=== PATIENT | female | born 1945 | race Caucasian/White ===

== ENCOUNTER 2020-12-01 16:51 | Inpatient (IN) | payer OTHER, MEDICAID ==
[~2020-12-01] VITALS: Ht 170.2 cm; Wt 71.9 kg
[~2020-12-01 16:51] MED LIST: COUMADIN 4 MG TA4 M1; LISINOPRIL-HCT1 EAC2; MIRALAX255 GM
[2020-12-01 16:55] VITALS: BP 183/82
[2020-12-01 17:11] LABS: HEMATOCRIT 35.5 % (37.0-47.0); HEMOGLOBIN 11.6 gm/dL (12.0-15.0); MCH 28.4 pg (26.0-34.0); MCHC 32.6 g/dL (28.0-37.0); MCV 87.3 fL (80.0-100.0); MPV 6.7 fl. (7.2-11.1); RBC 4.07 mil/uL (4.20-5.00); RDW-CV 13.7 % (10.5-14.5); WBC 13.2 thou/uL (4.0-11.0)
[2020-12-01 17:21] LABS: CALCIUM 8.4 mg/dL (8.5-10.1); CREATININE 0.7 mg/dL (0.6-1.3); POTASSIUM 3.5 mmol/L (3.5-5.1)
[2020-12-01 17:25] LABS: APTT 30.2 Seconds (25.0-31.3); PROTIME 10.5 Seconds (9.20-11.50)
[2020-12-01 17:26] LABS: TOTAL BILIRUBIN 0.3 mg/dL (<0.1-1.0); TOTAL PROTEIN 6.6 g/dL (6.4-8.2)
[2020-12-01] MEDS ORDERED: CARVEDILOL12.5 MG PO (17:41)
[2020-12-01] MEDS ORDERED: COZAAR 25 MG TA25 M1 PO (17:41)
[2020-12-01] MEDS ORDERED: CYCLOPENTOLA1 %/2 M1 OPHTHALMIC (17:42)
[2020-12-01] MEDS ORDERED: VIMPAT100 MG PO (17:42)
[2020-12-01] MEDS ORDERED: LIDODERM1 EACH TOP (17:42)
[2020-12-01] MEDS ORDERED: TYLENOL ARTHRI650 MG PO (17:43)
--- NOTE | 2020-12-01 17:47 | NUR ---
UNABLE TO PERFORM SWALLOW STUDY UNABLE TO FOLLOW COMMAND
[2020-12-01 17:49] LABS: URINE BILIRUBIN NEGATIVE (Negative); URINE BLOOD TRACE (Negative); URINE CLARITY CLEAR; URINE COLOR YELLOW; URINE GLUCOSE-RANDOM NEGATIVE (Negative); URINE KETONES TRACE (Negative); URINE LEUKOCYTES NEGATIVE (Negative); URINE NITRITE NEGATIVE (Negative); URINE PROTEIN TRACE (Negative); URINE SPECIFIC GRAVITY 1.025 (1.005-1.030); URINE UROBILINOGEN 0.2 E.U./dl (0.2-1.0)
[2020-12-01 18:58] LABS: URINE POTASSIUM-RANDOM 48.5 mmol/L
[2020-12-01 20:32] VITALS: BP 141/70
--- NOTE | 2020-12-01 21:00 | NUR ---
RECEIVED REPORT FROM ER, PT TO ROOM PER CART. PT ABLE TO ASSIST WITH TRANSFER FROM CART TO BED. LT HIP BRACE NOTED. PT ALERT AND ORIENTED X4, PLEASANT AND COOPERATIVE. ON RA, NO SOA NOTED. WALDEN PATENT. TEJ KNEES WITH SCABBED OVER ABRASIONS. TEJ BUTTOCKS WITH OPEN AREAS. TELEMETRY APPLIED SHOWING SR. SEE ADMISSION ASSESSMENT AND HX. WILL CONT TO MONITOR AND ASSIST NEEDED.
[2020-12-01 22:51] VITALS: BP 149/71
[2020-12-01 23:36] VITALS: BP 131/66
[2020-12-02 04:12] VITALS: BP 156/68
[2020-12-02 04:47] LABS: ABSOLUTE BASOPHILS 0.1 thou/uL (0.0-0.2); ABSOLUTE EOSINOPHILS 0.2 thou/uL (0.0-0.7); ABSOLUTE LYMPHOCYTES 1.6 thou/uL (0.8-5.3); ABSOLUTE MONOCYTES 0.9 thou/uL (0.0-1.2); ABSOLUTE NEUTROPHILS 11.9 thou/uL (1.6-8.1); BASOPHILS 0.4 %; EOSINOPHILS 1.2 %; HEMATOCRIT 34.5 % (37.0-47.0); HEMOGLOBIN 11.5 gm/dL (12.0-15.0); LYMPHOCYTES 11.1 %; MCH 28.5 pg (26.0-34.0); MCHC 33.3 g/dL (28.0-37.0); MCV 85.7 fL (80.0-100.0); MONOCYTES 6.1 %; MPV 7.3 fl. (7.2-11.1); NUCLEATED RBCS 0 /100WBC; PLATELET COUNT* 425 thou/uL (150-400); POLYS 81.2 %; RBC 4.02 mil/uL (4.20-5.00); RDW-CV 13.7 % (10.5-14.5); WBC 14.6 thou/uL (4.0-11.0)
[2020-12-02 05:02] LABS: CALCIUM 9.2 mg/dL (8.5-10.1); CREATININE 0.6 mg/dL (0.6-1.3); POTASSIUM 3.4 mmol/L (3.5-5.1)
[2020-12-02 05:04] LABS: CHOLESTEROL 121 mg/dL (<200); HDL CHOLESTEROL 47 mg/dL (>40); LDL CHOLESTEROL 46 mg/dL (<100); TC:HDL 2.6 Ratio (Not establshd); TRIGLYCERIDE 143 mg/dL (<150); VLDL 29 mg/dL (<40)
[2020-12-02 05:07] LABS: SERUM ASSESSMENT Clear
--- NOTE | 2020-12-02 06:23 | NUR ---
NAUSEATED, VOMITED LG AMT EMESIS. ZOFRAN GIVEN WITH RELIEF. REMAINS NPO ASSISTED WITH REPOSITIONING Q 2HR FROM SIDE TO SIDE. TELEMETRY ON SHOWING SR. NO OTHER CHANGES IN ASSESSMENT. HS GOALS OF REST AND SAFETY ACHIEVED. HOURLY ROUNDING OBSERVED.
[2020-12-02 08:00] VITALS: BP 151/61
--- NOTE | 2020-12-02 08:53 | NUR ---
WOUND NURSE: PATIENT SEEN TO ADDRESS WOUND ON RIGHT BUTTOCK MEASURING 1.5 X 1.5 CM. DEPTH NOT OBTAINABLE D/T 50% BLACKENED ESCHAR, 50% YELLOW SLOUGH. PATIENT REPORTING WOUND DEVELOPED AT HOME FROM LYING ON THE FLOOR POST FALL. WOUND PRESENTS WITH PINK EPITHELIALIZATION ALONG THE EDGES AND SCANT SEROUS DRAINAGE. THERE IS NO REDNESS, WARMTH, OR INDURATION. PATIENT WITHOUT COMPLAINTS OF PAIN RELATED TO THIS WOUND. CLEANSED WITH SOAP AND WATER, RINSED, THEN PATTED DRY. APPLIED SKIN PREP TO INTACT PERIWOUND TISSUE. APPLIED THERAHONEY HD SHEET TO WOUND BED, THEN COVERED WITH A BORDERED FOAM DRESSING. THIS WAS TOLERATED WELL BY THE PATIENT. LEFT BUTTOCK CONTAINS A NEWLY HEALED PINK SCAR. BILATERAL KNEES CONTAIN HEALING ABRASIONS WITH INTACT SCABS AND NO DRAINAGE. WILL LEAVE THESE OPEN TO AIR. POT DISCUSSED WITH DR. BELCHER AT THE BEDSIDE AND APPROVED WRITTEN. ALSO HE APPROVED SCHEDULING PATIENT TO BE SEEN IN [facility] FOLLOW DISCHARGE FROM ACUTE CARE. PATIENT INSTRUCTED ON NEED FOR OFFLOADING BY REPOSITIONING EVERY 2 HOURS AND REGARDING INCREASED NUTRITIONAL NEEDS. PATIENT STATES SHE UNDERSTANDS.
[2020-12-02 12:00] VITALS: BP 116/60
--- NOTE | 2020-12-02 12:23 | 2DMMODE ---
[place] [address] 2 D/M-MODE ECHOCARDIOGRAM Name: ESPERANZA AMADOR Room: [address] IN [facility]#: [id number] Admission: 12/01/20 Attend Phys: Richard Rangel, Discharge: Date of : 47 Date of Service: 12/02/20 1223 Report #: [id number] THIS REPORT FOR: cc: Physician not on staff Physician not on staff Andrea Alcaraz MD [facility] ~ APPROVED REPORT Study performed: 12/02/2020 09:33:35 EXAM: Comprehensive 2D, Doppler, and color-flow Echocardiogram Patient Location: In-Patient Room #: [facility] Status: routine BSA: 1.83 HR: 108 bpm BP: 156/68 mmHg Rhythm: NSR Other Information Study Quality: Good Indications CVA/TIA Echo Enhancing Agent Indication: Rule out Shunt Agent(s) / Amount(s) Used: Agitated Saline 10 cc 2D Dimensions IVSd: 13.20 (7-11mm) LVOT Diam: 19.94 (18-24mm) LVDd: 33.90 mm PWd: 10.61 (7-11mm) Ascending Ao: 29.07 (22-36mm) LVDs: 22.10 (25-40mm) Aortic Root: 30.77 mm Volumes Left Atrial Volume (Systole) LA ESV Index: 16.00 mL/m2 Aortic Valve AoV Peak Cristopher.: 1.44 m/s AO Peak Gr.: 8.27 mmHg LVOT Max P.54 mmHg AO Mean Gr.: 5.41 mmHg LVOT Mean P.14 [place] [address] 2 D/M-MODE ECHOCARDIOGRAM Name: ESPERANZA AMADOR Room: [address] IN ..#: [id number] Admission: 12/01/20 Attend Phys: Richard Rangel, Discharge: Date of : 47 Date of Service: 12/02/20 1223 Report #: [id number] LVOT Max V: 0.94 m/s AO V2 VTI: 20.65 cm LVOT Mean V: 0.69 m/s MIRIAM (VTI): 2.61 cm2 LVOT V1 VTI: 17.23 cm AI [place]: 3.49 m/s2 AI PHT: 311.43 ms Mitral Valve E/A Ratio: 0.50 MV Decel. Time: 80.81 ms MV E Max Cristopher.: 0.63 m/s MV PHT: 23.43 ms MVA (PHT): 9.39 cm2 TDI E/Lateral E': 5.25 E/Medial E': 7.00 Medial E' Cristopher.: 0.09 m/s Lateral E' Cristopher.: 0.12 m/s Pulmonary Valve PV Peak Cristopher.: 1.23 m/s PV Peak Gr.: 6.04 mmHg Left Ventricle The left ventricle is normal size. There is normal LV segmental wall motion. Mild concentric left ventricular hypertrophy. Left ventricular systolic function is normal. LVEF is 65-70%. Grade I - abnormal relaxation pattern. Right Ventricle The right ventricle is normal size. The right ventricular systolic function is normal. Atria The left atrium size is normal. The interatrial septum is intact with no evidence for an atrial septal defect. The right atrium size is normal. Aortic Valve Mild aortic valve sclerosis. Mild aortic regurgitation. There is no aortic valvular stenosis. Mitral Valve The mitral valve is normal in structure. Trace mitral regurgitation. No evidence of mitral valve stenosis. Tricuspid Valve The tricuspid valve is normal in structure. Trace [place] [address] 2 D/M-MODE ECHOCARDIOGRAM Name: ESPERANZA AMADOR Room: [address]#: [id number] Admission: 12/01/20 Attend Phys: Richard Rangel, Discharge: Date of : 47 Date of Service: 12/02/20 1223 Report #: [id number] regurgitation. Unable to assess PA pressure. Pulmonic Valve The pulmonary valve is normal in structure. There is no pulmonic valvular regurgitation. Great Vessels The aortic root is normal in size. IVC is normal in size and collapses >50% with inspiration. Pericardium There is no pericardial effusion. <Conclusion> The left ventricle is normal size. Mild concentric left ventricular hypertrophy. Left ventricular systolic function is normal. LVEF is 65-70%. Grade I - abnormal relaxation pattern. The interatrial septum is intact with no evidence for an atrial septal defect. Mild aortic valve sclerosis. Mild aortic regurgitation. Trace mitral regurgitation. Trace tricuspid regurgitation. IVC is normal in size and collapses >50% with inspiration. <ELECTRONICALLY SIGNED> By: Andrea Alcaraz MD, FACC 12/02/20 1223 1223 1223 Andrea Alcaraz MD, FACC /INF
--- NOTE | 2020-12-02 12:44 | EKG ---
[place] [address] ELECTROCARDIOGRAM REPORT Name: ESPERANZA AMADOR Room: [address] ADM IN [facility]#: [id number] Admission: 12/01/20 Attend Phys: Richard Rangel, Discharge: Date of : 47 Date of Service: 12/01/20 1711 Report #: [id number] THIS REPORT FOR: //name// [facility] ED Test Date: 2020-12-01 Test Time: 17:11:58 Pat Name: ESPERANZA AMADOR Department: Room: [facility] Gender: F Library Historian: EM : 1945 Requested By: Daryl Hitchcock Order Number: [id number] MD: Estuardo Bingham Measurements Intervals [place] Rate: 91 P: 65 WI: 151 QRS: 45 QRSD: 80 T: 77 QT: 370 QTc: 456 Interpretive Statements Sinus rhythm poor r wave progression Borderline abnrm T, anterolateral leads Baseline wander in lead(s) V6 Compared to ECG 06/16/2009 14:43:46 t wave changes now noted Electronically Signed On 12-02-2020 12:44:44 [employer]USTRI[employer] OPERATOR by Estuardo Bingham [email or web address] <ELECTRONICALLY SIGNED> By: Estuardo Bingham MD, FACC 12/02/20 1244 171 171 Estuardo Bingham MD, [facility] /EPI
--- NOTE | 2020-12-02 13:16 | NUR ---
Nutrition: Pt admitted with encephalopathy, syncopal episode. Seen for pressure ulcer on Rt buttock. Possible aspiration pneumonitis, debility. Labs: Na 134, K+ 3.4, albumin 3, WBC 14.6. Wt: 158#. Diet just advanced this lunch to Regular. Encourage good po intake, HBV protein at meals, good hydration. Will follow for labs, po intake, wt per protocol. Mild risk. F/u 12/09/20.
--- NOTE | 2020-12-02 13:39 | NUR ---
Pt is A&O. Pt has been at [facility] skilled post a hospital stay at [place] for hip issues. Pt normally resides at [facility]. Pt has a cane and walker that she can use for mobility. Pt states that she has a caregiver that assists with cooking,cleaning and driving to appts/store. CG is there 3x/week for 9hrs/week. No hx of HH. Pt worked with PT today, PT recommending home with HH, Pt is in agreement. CM to arrange HH at [facility]. CM updated [facility], they are able to accept Pt back at [facility] if needed, pending insurance auth.
[2020-12-02 16:13] VITALS: BP 110/72
--- NOTE | 2020-12-02 18:08 | NUR ---
RECEIVED REPORT AROUND 0715. ASSUMED CARE. VS AND ASSESSMENT CHARTED. IV INTACT RIGHT FOREARM. HEART MONITOR ATTACHED AT ST/SR. BRACE INTACT. PT UP WITH ASSIST X1. WALDEN OUT THIS AM. PT HAS VOIDED THROUGHOUT DAY. PT STATED "NO" TO ANY PAIN. PT HAS BEEN FORGETFUL THROUGHOUT SHIFT. PT LYING IN BED CURRENTLY. SAT UP IN CHAIR FOR A WHILE THIS SHIFT. MEDS GIVEN PER DEC. HOURLY ROUNDING PERFORMED. CALL LIGHT WITHIN REACH. WILL CONTINUE TO MONITOR.
[2020-12-02 19:20] VITALS: BP 156/78
[2020-12-03] VITALS (7 sets, daily range): BP systolic 136–161; BP diastolic 54–71
[2020-12-03 02:06] LABS: GLYCOHEMOGLOBIN (HGB A1C) 5.6 % (4.8-5.6)
--- NOTE | 2020-12-03 05:33 | NUR ---
PT SLEPT MOST OF SHIFT. ASSESSMENT DOCUMENTED. MEDS GIVEN PER E-MAR. IV PATENT. NO REPORTS OF PAIN. FALL PRECAUTIONS IN PLACE. PT PULLED IV THIS SHIFT, NEW ONE PLACED. PT REPOSITIONS SELF IN BED. WILL CONTINUE WITH PLAN OF CARE.
[2020-12-03] MEDS ORDERED: OMEPRAZOLE 20 M20 M1 PO (10:01)
--- NOTE | 2020-12-03 12:14 | NUR ---
Pt discharging to home today, HH arranged through [facility]. Cab to provide transport
--- NOTE | 2020-12-03 18:52 | NUR ---
RECEIVED REPORT AROUND 0715. ASSUMED CARE. VS AND ASSESSMENT CHARTED. BRACE INTACT. IV INTACT RIGHT FOREARM. HEART MONITOR ATTACHED AT SR. PT UP WITH ASSIST X1. DISCHARGE ORDERS RECEIVED. IV TAKEN OUT. HEART MONITOR OFF. MEDS GIVEN PER DEC. HOURLY ROUNDING PERFORMED. PT LEFT UNIT VIA WHEELCHAIR WITH NURSING STAFF AND ALL BELONGINGS AT 1845. DISCHARGE PACKET GIVEN TO PT. PT COMMUNICATED UNDERSTANDING.
--- NOTE | 2020-12-05 10:55 | CON ---
[address] [address] CONSULTATION Name: PERRYESPERANZA Zamorano Room: [address] IN M.R.#: [id number] Admission: 12/01/20 Attend Phys: Richard Rangel MD Discharge: 12/03/20 Date of : 47 Report #: [id number] THIS REPORT FOR: cc: Physician not on staff Physician not on staff ~ Rob Maravilla MD DATE OF SERVICE: 12/02/2020 HISTORY OF PRESENT ILLNESS: This is a 75-year-old female patient who was seen by me for a complicated history. I reviewed the patient's records and I talked to the Emergency Room physician and I talked to Dr. Chaudhry. This patient says that she was in a [facility] facility because of her hip injury. She was brought for altered mental status. Initially, they activated the code stroke, but subsequently they thought the patient may have encephalopathy because she was confused and combative. The patient since and has become much better and she feels back to her baseline. Complicating history is that this patient was admitted to [facility]. She says that she was worked up for stroke and seizure. She was started on Vimpat, so I suspect they diagnosed her with seizure. She also thought she had an MRI, which showed stroke. I have asked the staff to get the record from [place], but I have not received that yet. The patient is feeling back to her normal self. REVIEW OF SYSTEMS: Positive for what looks like the possibility of the diagnosis of seizures at [facility]. 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 Her blood sugar was 101. She does have a history of hypertension. She had chemotherapy. She has a history of shingles. She had a cataract removal. This is the 14-point review of system I can get in this patient. PAST MEDICAL HISTORY: Positive for what looks like seizure, stroke or both at [facility]. FAMILY HISTORY: Negative for congenital epilepsy. SOCIAL HISTORY: She does not abuse alcohol. PHYSICAL EXAMINATION: Indicate she is alert, responsive, able to follow simple and complex command. Her speech, concentration, fund of knowledge. Cranial nerve examination 2-12. Neuromuscular examination except for her hip issues on the left side and her ecchymosis and wounds on the skin was unremarkable. There is no meningeal sign. Cardiac examination appear noncontributory. No respiratory difficulty was noted. Blood pressure is 156/78, respirations 14, [place] [address] CONSULTATION Name: ESPERANZA AMADOR Room: [address]#: [id number] Admission: 12/01/20 Attend Phys: Richard Rangel MD Discharge: 12/03/20 Date of : 47 Report #: [id number] pulse is 94, temperature is 98.1. LABORATORY DATA: White count is elevated at 14.6. Sodium and potassium is trace abnormal, urine appear unremarkable. IMPRESSION: Clinically, it looks like the patient may be having seizure. We need to monitor for any cardiac cause and side effects from Vimpat, which is usually cardiac. If we do not find anything I may like to increase her Vimpat. I also need to get the records from [facility] to see how much more workup we need to do here and how much we need to repeat. Hopefully, we will get it by tomorrow. I discussed all of it with the patient in detail and I spent more than 50 minutes of time taking care of this patient and majority was spent counseling and coordinating. Thank you very much for this referral. <ELECTRONICALLY SIGNED> By: Rob Maravilla MD 12/05/20 1055 07 Rob Maravilla MD /nt
--- NOTE | 2020-12-05 10:55 | EEG ---
[address] [address] EEG STUDY REPORT Name: ESPERANZA AMADOR Room: [address] IN .R#: [id number] Admission: 12/01/20 Attend Phys: Richard Rangel MD Discharge: 12/03/20 Date of : 47 Report #: [id number] THIS REPORT FOR: cc: Physician not on staff Physician not on staff ~ Rob Maravilla MD DATE OF SERVICE: 12/03/2020 This patient is being evaluated for the possibility of seizure. EEG was done by placing the electrode by standard 10-20 system of electrode placement. Both referential and sequential montages were used for recording. Background activity in this patient's EEG is about 9 Hz and 30 microvolt. The patient became drowsy and that is associated with bilateral slowing and vertex sharp waves. Photic stimulation was unremarkable. Throughout the record, no active epileptiform activity was noticed. IMPRESSION: This patient's EEG is unremarkable. It did not show any active epileptiform activity. That might be mentioned EEG can be normal in a significant percentage of patient with seizure disorder. Thank you very much for this referral. <ELECTRONICALLY SIGNED> By: Rob Maravilla MD 12/05/20 1055 1018 [id number] Maravilla MD /nt
== END 2020-12-03 18:45 | disposition home health service (06) | DRG 100 ==
LOC: M.ERS 16:51 → M.2W 18:18 → M.TBA-ER 18:18 → M.2W 21:19
PROVIDERS: Emergency Medicine; ADMIT Internal Medicine; ATTEND Internal Medicine
DX: G40.909 Epilepsy, unspecified, not intractable, without status epilepticus (principal); J69.0 Pneumonitis due to inhalation of food and vomit; G92 Toxic encephalopathy; E87.1 Hypo-osmolality and hyponatremia; T50.995A Adverse effect of other drugs, medicaments and biological substances, initial encounter; G62.9 Polyneuropathy, unspecified; R53.81 Other malaise; G25.81 Restless legs syndrome; I10 Essential (primary) hypertension; S31.809A Unspecified open wound of unspecified buttock, initial encounter; X58.XXXA Exposure to other specified factors, initial encounter; Z96.642 Presence of left artificial hip joint; Z20.822 Contact with and (suspected) exposure to COVID-19; Y93.89 Activity, other specified; Y99.8 Other external cause status; Z92.21 Personal history of antineoplastic chemotherapy; Y92.89 Other specified places as the place of occurrence of the external cause; Z98.49 Cataract extraction status, unspecified eye; Z85.72 Personal history of non-Hodgkin lymphomas; Z79.899 Other long term (current) drug therapy